=== PATIENT | male | born 1955 | race Caucasian/White ===

== ENCOUNTER 2023-06-25 22:04 | Observation (INO) | payer MEDICARE ==
[2023-06-26] MEDS ORDERED: Ondansetron ODT 4 MG TAB PO PRN (01:00)
[2023-06-26] MEDS ORDERED: Acetaminophen 325 MG TAB PO PRN (01:00)
[2023-06-26] MEDS ORDERED: Ondansetron PF 4 MG/2 ML Vial IVP PRN (01:00)
[2023-06-26] MEDS ORDERED: Acetaminophen 650 MG Suppository PR PRN (01:00)
[2023-06-26 01:13] VITALS: BMI 27.1
[2023-06-26] MEDS ORDERED: Aspirin 81 mg Enteric Coated Tablet PO SCH ×2 (02:15→09:00)
[2023-06-26 05:41] LABS: #Eosinphils 0.1 thou/uL (0.0-0.7); #Monocytes 1.1 thou/uL (0.11-0.59); #Neutrophils 7.2 thou/uL (1.40-6.50); %Basophils 0.4 % (0.0-1.0); %Eosinophils 1.2 % (0.0-10.0); %Monocytes 10.3 % (0.0-10.0); %Neutrophils 68.7 % (42.0-75.0); Hematocrit 42.8 % (42.0-52.0); Hemoglobin 14.6 g/dL (14.0-18.0); Mean Corpuscular HGB CONC 34.1 g/dL (32.0-36.0); Mean Corpuscular Hemoglobin 29.9 pg (27.0-31.0); Mean Corpuscular Volume 87.5 fl (78.0-98.0); Mean Platelet Volume 10.1 fL (7.4-10.4); Platelet Count 186 10x3/uL (130-400); Red Blood Cell (RBC) Count 4.89 mill/uL (4.70-6.10); White Blood Cell (WBC) Count 10.4 10x3/uL (4.8-10.8)
[2023-06-26] MEDS ORDERED: Clopidogrel Bisulfate 75 MG TAB PO SCH ×2 (06:00→09:00)
[2023-06-26 06:11] LABS: Anion Gap 16 mmol/L (10-20); BUN (Urea Nitrogen) 12 mg/dL (8.4-25.7); Calc. Creatinine Clearance 77 mL/min (70-130); Calcium 9.5 mg/dL (7.8-10.44); Carbon Dioxide 22 mmol/L (23-31); Chloride 107 mmol/L (98-107); Estimated GFR 67; Glucose 116 mg/dL (80-115); Potassium 4.5 mmol/L (3.5-5.1); Sodium 140 mmol/L (136-145)
[2023-06-26] MEDS ORDERED: Ipratropium Bromide 0.03% Nasal Inhaler 30 ml Bottle EA NARE SCH (09:00)
[2023-06-26] MEDS ORDERED: Losartan 25 MG TAB PO SCH (09:00)
[2023-06-26] MEDS ORDERED: BuPROPion XL 150 MG ER.TAB PO SCH (09:00)
[2023-06-26 13:41] VITALS: BP 155/75; TEMP 98.1
[2023-06-26] MEDS ORDERED: Montelukast Sodium 10 mg Tablet PO SCH (21:00)
== END 2023-06-26 15:16 | disposition home or self-care (01) ==
LOC: INTOOBSV 06-26 00:20 → T4-A 06-26 00:20
PROVIDERS: ADMIT Student in an Organized Health Care Education/Training Program; ATTEND Family Medicine
DX: I73.9 Peripheral vascular disease, unspecified (principal); I82.811 Embolism and thrombosis of superficial veins of right lower extremity; I10 Essential (primary) hypertension; E78.5 Hyperlipidemia, unspecified; Z88.0 Allergy status to penicillin; Z88.1 Allergy status to other antibiotic agents; Z91.041 Radiographic dye allergy status; Z79.82 Long term (current) use of aspirin; Z79.899 Other long term (current) drug therapy; Z90.49 Acquired absence of other specified parts of digestive tract; Z90.89 Acquired absence of other organs
CPT/HCPCS: 80048; 80053; 85025 ×2; 85610; 85730; 93923; G0378; 36415

== ENCOUNTER 2024-01-22 10:22 | Outpatient (CLI) | payer MEDICARE | END 2024-01-22 10:23 | disposition home or self-care (01) | LOC: MRI 10:22 | PROVIDERS: ATTEND Family Medicine | DX: I77.1 Stricture of artery (principal); R10.9 Unspecified abdominal pain; I70.203 Unspecified atherosclerosis of native arteries of extremities, bilateral legs | CPT/HCPCS: C8900; C8912; 74185 ==